=== PATIENT | male | born 1945 | race Caucasian/White ===

== ENCOUNTER → 2024-03-26 | Outpatient (CLI) | LOC: M SOG 07:53 | PROVIDERS: ATTEND Physician Assistant | DX: M18.0 Bilateral primary osteoarthritis of first carpometacarpal joints (principal) ==

== ENCOUNTER 2024-12-06 13:23 | Emergency (ER) | payer BC, MEDICARE ==
[~2024-12-06] VITALS: Ht 180.3 cm; Wt 107.2 kg
[2024-12-06 17:15] LABS: KETONE, URINE AUTO RFX NEGATIVE (NEGATIVE); LEUKOCYTE ESTERASE UR AUTO RFX NEGATIVE (NEGATIVE); MUCUS, URINE RFX SMALL (NEGATIVE); NITRITE, URINE AUTO RFX NEGATIVE (NEGATIVE); RBC, URINE AUTO RFX 0 /HPF (0-3); SQUAM EPITHELIAL CELL UR AURFX 0 /HPF (0-6); WBC, URINE AUTO RFX 0 /HPF (0-3)
[2024-12-06] MEDS ORDERED: PYRI1TAB5 PO (18:52)
[2024-12-06 19:06] VITALS: BP 178/82; TEMP 97.3; O2SAT 96
== END 2024-12-06 19:08 | disposition home or self-care (01) ==
LOC: M ED 13:23
DX: R30.0 Dysuria (principal); N40.1 Benign prostatic hyperplasia with lower urinary tract symptoms; I11.0 Hypertensive heart disease with heart failure; Z95.0 Presence of cardiac pacemaker; Z96.659 Presence of unspecified artificial knee joint